=== PATIENT | female | born 1960 | race Two or more races ===

== ENCOUNTER 2018-05-03 06:18 | Inpatient (IN) | payer MEDICAID, OTHER ==
[2018-05-03] VITALS (7 sets, daily range): BP systolic 140–167; BP diastolic 67–86
[~2018-05-03] VITALS: Ht 175.3 cm; Wt 147.4 kg
[2018-05-03] MEDS ORDERED: MAGNESIUM 2 G PREMIX 50 ML IV STA (06:40)
[2018-05-03] MEDS ORDERED: METHYLPREDNISOLONE SOD SUCC 125 MG/2 ML VIAL IV STA (06:40)
[2018-05-03] MEDS ORDERED: IPRATROPIUM BROMIDE (0.02%) 0.5MG/2.5ML NEB HHN STA (06:40)
[2018-05-03] MEDS ORDERED: ALBUTEROL (0.083%) 2.5MG/3ML NEB HHN STA (06:40)
[2018-05-03] MEDS ORDERED: FUROSEMIDE 20MG/2ML VIAL IVP ONE (07:00)
[2018-05-03] MEDS ORDERED: LEVOFLOXACIN 750MG PREMIX 150 ML IV ONE (07:00)
[2018-05-03 07:23] LABS: HEMATOCRIT. 38.3 % (36.0-48.0); HEMOGLOBIN. 12.3 g/dL (12.0-16.0); MEAN CORPUSCULAR HEMOGLOBIN 25.2 pg (28.0-32.0); MEAN CORPUSCULAR VOLUME 78.3 fL (81.0-99.0); MEAN PLATELET VOLUME 8.7 fl (7.4-10.4); PLATELET 210 x1000/uL (130-400); RED BLOOD CELL COUNT 4.89 mill/uL (4.2-5.4); RED CELL DISTRIBUTION WIDTH 14.9 % (11.6-14.6)
[2018-05-03 07:30] LABS: CHLORIDE 101 mEq/L (98-107)
[2018-05-03 07:33] LABS: INR 1.1; PROTHROMBIN TIME 10.7 sec (9.1-11.1)
[2018-05-03 08:03] LABS: PLATELET ESTIMATE NORMAL
[2018-05-03 08:17] LABS: BG BASE EXCESS -5.2 mmol/L (-2.0-2.0); BG CARBOXYHEMOGLOBIN 0.3 % (0.5-1.5); BG DEOXYHEMOGLOBIN 0.7 % (0.0-5.0); BG FRACTION INSPIRED OXYGEN 35; BG METHEMOGLOBIN 0.5 % (0.0-1.5); BG OXYGEN SATURATION 99.3 % (92.0-98.5); BG OXYHEMOGLOBIN 98.5 % (94.0-97.0); BG PCO2 37.7 mmHg (35.0-45.0); BG PH 7.342 (7.350-7.450); BG PO2 217.4 mmHg (75.0-100.0); BG SAMPLE SITE RIGHT RADIAL; BG TOTAL HEMOGLOBIN 13.1 g/dL (12.0-18.0); BG VENT MODE MASK - BIPAP; BG VENT RATE 18 set
[2018-05-03 08:35] LABS: CLARITY URINE CLEAR (CLEAR); COLOR URINE YELLOW (YELLOW); KETONES URINE TRACE (NEGATIVE); LEUKOCYTE ESTERASE URINE TRACE (NEGATIVE); NITRITE URINE NEGATIVE (NEGATIVE); OCCULT BLOOD URINE NEGATIVE (NEGATIVE); PH URINE 5.5 (4.5-8.0); PROTEIN URINE NEGATIVE (NEGATIVE); SPECIFIC GRAVITY URINE 1.024 (1.005-1.030)
[2018-05-03] MEDS ORDERED: BENZONATATE 100MG CAPSULE PO PRN (09:00)
[2018-05-03] MEDS ORDERED: POTA10CA42 MT (11:07)
[2018-05-03] MEDS ORDERED: FLUO20CA33 MT (11:07)
[2018-05-03] MEDS ORDERED: [UNRECOGNIZED DRUG - OTHER] (11:07)
[2018-05-03] MEDS ORDERED: FURO20TA4 PO (11:07)
[2018-05-03] MEDS ORDERED: OMEP20TA2 PO (11:09)
[2018-05-03] MEDS ORDERED: ASPI-1158 PO (11:09)
[2018-05-03] MEDS ORDERED: IPRATROPIUM/ALBUTEROL 0.5-3(2.5)MG/3ML NEB HHN PRN (12:00)
[2018-05-03] MEDS: METHYLPREDNISOLONE SOD SUCC 40 MG/ML VIAL IV SCH ×2 (12:08→20:27)
[2018-05-03] MEDS: HYDROCODONE/ACETAMINOPHEN 5/325MG TABLET PO PRN (12:27)
[2018-05-03] MEDS: IPRATROPIUM/ALBUTEROL 0.5-3(2.5)MG/3ML NEB HHN SCH ×3 (12:35→21:03)
[2018-05-03] MEDS: AZITHROMYCIN 500 MG in DEXT 5% WATER 250 ML IV SCH (14:32)
[2018-05-03] MEDS ORDERED: INFLUENZA VIRUS VACCINE(AFLURIA) 0.5ML SYR IM ONE (15:45)
[2018-05-03] MEDS ORDERED: PNEUMOCOCCAL 23-VAL P-SAC VAC 0.5 ML IM ONE (15:45)
[2018-05-03] MEDS: ACETYLCYSTEINE 100MG/ML 10% VIAL 4ML INH SCH (16:59)
[2018-05-03] MEDS: MONTELUKAST SODIUM 10MG TABLET PO SCH (17:27)
[2018-05-03] MEDS: MORPHINE SULFATE 4 MG/ML CPJ (NOT FOR IM USE) IV PRN (20:28)
[2018-05-03] MEDS: AMLODIPINE 5MG TABLET PO SCH (20:29)
[2018-05-03] MEDS: GUAIFENESIN 600MG ER TABLET PO SCH (20:29)
[2018-05-04] VITALS (12 sets, daily range): BP systolic 138–163; BP diastolic 69–107
[2018-05-04] MEDS: IPRATROPIUM/ALBUTEROL 0.5-3(2.5)MG/3ML NEB HHN SCH ×6 (00:33→20:15)
[2018-05-04] MEDS: ACETYLCYSTEINE 100MG/ML 10% VIAL 4ML INH SCH ×3 (00:34→15:56)
[2018-05-04] MEDS: METHYLPREDNISOLONE SOD SUCC 40 MG/ML VIAL IV SCH ×3 (03:15→21:15)
[2018-05-04] MEDS: MORPHINE SULFATE 4 MG/ML CPJ (NOT FOR IM USE) IV PRN ×2 (04:13→18:02)
[2018-05-04] MEDS: CLONIDINE 0.1MG TABLET PO PRN (05:14)
[2018-05-04] MEDS: OMEPRAZOLE 20MG CAPSULE EXTENDED RELEASE PO SCH (06:25)
[2018-05-04 06:43] LABS: HEMATOCRIT. 35.4 % (36.0-48.0); HEMOGLOBIN. 11.6 g/dL (12.0-16.0); MEAN CORPUSCULAR HEMOGLOBIN 25.1 pg (28.0-32.0); MEAN CORPUSCULAR VOLUME 76.9 fL (81.0-99.0); MEAN PLATELET VOLUME 8.9 fl (7.4-10.4); PLATELET 198 x1000/uL (130-400); RED CELL DISTRIBUTION WIDTH 15.1 % (11.6-14.6)
[2018-05-04 06:46] LABS: CHLORIDE 100 mEq/L (98-107)
[2018-05-04] MEDS: ASPIRIN 81MG TABLET PO SCH (08:41)
[2018-05-04] MEDS: FLUOXETINE HCL 20MG CAPSULE PO SCH (08:43)
[2018-05-04] MEDS: GUAIFENESIN 600MG ER TABLET PO SCH ×2 (08:43→21:14)
[2018-05-04] MEDS: POTASSIUM CHLORIDE 20MEQ TABLET SR PO SCH (08:43)
[2018-05-04] MEDS: AMLODIPINE 5MG TABLET PO SCH ×2 (08:43→21:14)
[2018-05-04] MEDS: LEVOFLOXACIN 750MG PREMIX 150 ML IV SCH (08:44)
[2018-05-04] MEDS: FUROSEMIDE 20MG TABLET PO SCH (08:44)
[2018-05-04 09:04] LABS: PLATELET ESTIMATE NORMAL
[2018-05-04] MEDS ORDERED: LACTULOSE 20G/30ML UDC PO PRN (10:45)
[2018-05-04] MEDS: DOCUSATE SODIUM 250MG CAPSULE PO SCH (12:01)
[2018-05-04] MEDS ORDERED: SODIUM CHLORIDE 10% FOR INH 15ML VIAL NEB INH SCH (14:30)
[2018-05-04] MEDS: AZITHROMYCIN 500 MG in DEXT 5% WATER 250 ML IV SCH (15:49)
[2018-05-04] MEDS: MONTELUKAST SODIUM 10MG TABLET PO SCH (18:02)
[2018-05-05] VITALS (11 sets, daily range): BP systolic 139–169; BP diastolic 56–106
[2018-05-05] MEDS: IPRATROPIUM/ALBUTEROL 0.5-3(2.5)MG/3ML NEB HHN SCH ×5 (04:00→20:25)
[2018-05-05] MEDS: ACETYLCYSTEINE 100MG/ML 10% VIAL 4ML INH SCH ×2 (05:24→07:39)
[2018-05-05] MEDS: METHYLPREDNISOLONE SOD SUCC 40 MG/ML VIAL IV SCH ×2 (05:39→13:00)
[2018-05-05] MEDS: HYDROCODONE/ACETAMINOPHEN 5/325MG TABLET PO PRN ×3 (05:40→21:38)
[2018-05-05] MEDS: POTASSIUM CHLORIDE 20MEQ TABLET SR PO SCH (09:06)
[2018-05-05] MEDS: FLUOXETINE HCL 20MG CAPSULE PO SCH (09:06)
[2018-05-05] MEDS: GUAIFENESIN 600MG ER TABLET PO SCH ×2 (09:06→21:36)
[2018-05-05] MEDS: ASPIRIN 81MG TABLET PO SCH (09:06)
[2018-05-05] MEDS: FUROSEMIDE 20MG TABLET PO SCH (09:07)
[2018-05-05] MEDS: OMEPRAZOLE 20MG CAPSULE EXTENDED RELEASE PO SCH (09:07)
[2018-05-05] MEDS: AMLODIPINE 5MG TABLET PO SCH ×2 (09:07→21:36)
[2018-05-05] MEDS: DOCUSATE SODIUM 250MG CAPSULE PO SCH (09:07)
[2018-05-05] MEDS: LEVOFLOXACIN 750MG PREMIX 150 ML IV SCH (09:54)
[2018-05-05 12:10] LABS: *AMPHETAMINES SCREEN URINE NEGATIVE (NEGATIVE); *BARBITURATES SCREEN URINE NEGATIVE (NEGATIVE); *BENZODIAZEPINES SCREEN URINE NEGATIVE (NEGATIVE); *COCAINE SCREEN URINE NEGATIVE (NEGATIVE)
[2018-05-05 12:11] LABS: CANNABINOID URINE SCREEN NEGATIVE (NEGATIVE); METHADONE URINE SCREEN NEGATIVE (NEGATIVE); OPIATES URINE SCREEN PRESUMTIVE POSITIVE (NEGATIVE); PHENCYCLIDINE URINE SCREEN NEGATIVE (NEGATIVE)
[2018-05-05] MEDS: AZITHROMYCIN 500 MG in DEXT 5% WATER 250 ML IV SCH (13:00)
[2018-05-05] MEDS ORDERED: GUAIFENESIN/CODEINE 100-10MG/5ML UDC PO PRN (14:30)
[2018-05-05] MEDS ORDERED: RACEPINEPHRINE 2.25% 0.5ML NEB VIAL HHN PRN (14:30)
[2018-05-05] MEDS ORDERED: FLUCONAZOLE 150MG TABLET PO NR (17:00)
[2018-05-05] MEDS: MONTELUKAST SODIUM 10MG TABLET PO SCH (17:38)
[2018-05-05 20:22] LABS: HEMATOCRIT. 36.9 % (36.0-48.0); HEMOGLOBIN. 11.7 g/dL (12.0-16.0); MEAN CORPUSCULAR HEMOGLOBIN 24.8 pg (28.0-32.0); MEAN CORPUSCULAR VOLUME 78.5 fL (81.0-99.0); MEAN PLATELET VOLUME 8.8 fl (7.4-10.4); PLATELET 265 x1000/uL (130-400); RED CELL DISTRIBUTION WIDTH 15.5 % (11.6-14.6)
[2018-05-05] MEDS: FLUTICASONE PROPIONATE 50MCG/SPRAY BOTTLE BOTHNSTRLS SCH (21:37)
[2018-05-05 23:09] LABS: PLATELET ESTIMATE NORMAL
[2018-05-06] VITALS (7 sets, daily range): BP systolic 156–171; BP diastolic 56–99
[2018-05-06] MEDS: IPRATROPIUM/ALBUTEROL 0.5-3(2.5)MG/3ML NEB HHN SCH ×6 (00:30→21:18)
[2018-05-06 06:21] LABS: BASOPHILS % 0.2 % (0.0-2.0); HEMATOCRIT. 36.4 % (36.0-48.0); HEMOGLOBIN. 11.8 g/dL (12.0-16.0); LYMPHOCYTES % 12.5 % (20.0-50.0); MEAN CORPUSCULAR VOLUME 77.5 fL (81.0-99.0); MEAN PLATELET VOLUME 8.7 fl (7.4-10.4); MONOCYTES % 8.6 % (2.0-8.0); NEUTROPHILS % 78.7 % (40.0-76.0); PLATELET 293 x1000/uL (130-400); RED CELL DISTRIBUTION WIDTH 15.1 % (11.6-14.6)
[2018-05-06] MEDS: OMEPRAZOLE 20MG CAPSULE EXTENDED RELEASE PO SCH (06:44)
[2018-05-06] MEDS: LEVOFLOXACIN 750MG PREMIX 150 ML IV SCH (07:55)
[2018-05-06] MEDS: FLUOXETINE HCL 20MG CAPSULE PO SCH (08:08)
[2018-05-06] MEDS: ASPIRIN 81MG TABLET PO SCH (08:08)
[2018-05-06] MEDS: POTASSIUM CHLORIDE 20MEQ TABLET SR PO SCH (08:08)
[2018-05-06] MEDS: PREDNISONE 20MG TABLET PO SCH (08:08)
[2018-05-06] MEDS: DOCUSATE SODIUM 250MG CAPSULE PO SCH (08:08)
[2018-05-06] MEDS: FUROSEMIDE 20MG TABLET PO SCH (08:08)
[2018-05-06] MEDS: FLUTICASONE PROPIONATE 50MCG/SPRAY BOTTLE BOTHNSTRLS SCH ×2 (08:09→19:58)
[2018-05-06] MEDS: AMLODIPINE 5MG TABLET PO SCH ×2 (08:47→20:00)
[2018-05-06] MEDS: GUAIFENESIN 600MG ER TABLET PO SCH ×2 (09:00→19:59)
[2018-05-06] MEDS: CLONIDINE 0.1MG TABLET PO PRN (10:18)
[2018-05-06 10:49] LABS: CHLORIDE 98 mEq/L (98-107)
[2018-05-06] MEDS ORDERED: PHENOL/SODIUM PHENOLATE 1.4% SRPAY 177ML MM PRN (14:00)
[2018-05-06] MEDS: AZITHROMYCIN 500 MG in DEXT 5% WATER 250 ML IV SCH (14:12)
[2018-05-06] MEDS: MONTELUKAST SODIUM 10MG TABLET PO SCH (16:37)
[2018-05-06] MEDS: THROAT LOZENGES-BENZOCAINE/MENTH/CETYLPYRD CL LOZENGES MM PRN (16:46)
[2018-05-06] MEDS: HYDROCODONE/ACETAMINOPHEN 5/325MG TABLET PO PRN (19:59)
[2018-05-07] VITALS: BP 160/66
[2018-05-07] MEDS: IPRATROPIUM/ALBUTEROL 0.5-3(2.5)MG/3ML NEB HHN SCH ×4 (01:00→12:15)
[2018-05-07 02:00] VITALS: BP 175/102
[2018-05-07] MEDS: CLONIDINE 0.1MG TABLET PO PRN (02:26)
[2018-05-07] MEDS: HYDROCODONE/ACETAMINOPHEN 5/325MG TABLET PO PRN ×2 (02:32→12:15)
[2018-05-07 04:00] VITALS: BP 177/104
[2018-05-07 06:20] LABS: HEMATOCRIT. 35.1 % (36.0-48.0); HEMOGLOBIN. 11.3 g/dL (12.0-16.0); MEAN CORPUSCULAR HEMOGLOBIN 24.7 pg (28.0-32.0); MEAN CORPUSCULAR VOLUME 76.9 fL (81.0-99.0); MEAN PLATELET VOLUME 8.2 fl (7.4-10.4); PLATELET 266 x1000/uL (130-400); RED BLOOD CELL COUNT 4.56 mill/uL (4.2-5.4); RED CELL DISTRIBUTION WIDTH 14.8 % (11.6-14.6)
[2018-05-07 07:19] LABS: CHLORIDE 97 mEq/L (98-107)
[2018-05-07 08:00] VITALS: BP 136/66
[2018-05-07] MEDS: FLUTICASONE PROPIONATE 50MCG/SPRAY BOTTLE BOTHNSTRLS SCH (08:57)
[2018-05-07] MEDS: OMEPRAZOLE 20MG CAPSULE EXTENDED RELEASE PO SCH (08:57)
[2018-05-07] MEDS: PREDNISONE 20MG TABLET PO SCH (08:59)
[2018-05-07] MEDS: FLUOXETINE HCL 20MG CAPSULE PO SCH (08:59)
[2018-05-07] MEDS: AMLODIPINE 5MG TABLET PO SCH (08:59)
[2018-05-07] MEDS: POTASSIUM CHLORIDE 20MEQ TABLET SR PO SCH (08:59)
[2018-05-07] MEDS ORDERED: LEVOFLOXACIN 750MG PREMIX 150 ML IV SCH (09:00)
[2018-05-07] MEDS: DOCUSATE SODIUM 250MG CAPSULE PO SCH (09:00)
[2018-05-07] MEDS: GUAIFENESIN 600MG ER TABLET PO SCH (09:00)
[2018-05-07] MEDS: ASPIRIN 81MG TABLET PO SCH (09:00)
[2018-05-07] MEDS: FUROSEMIDE 20MG TABLET PO SCH (09:00)
[2018-05-07] MEDS: THROAT LOZENGES-BENZOCAINE/MENTH/CETYLPYRD CL LOZENGES MM PRN ×2 (10:21→14:23)
[2018-05-07 10:59] LABS: PLATELET ESTIMATE NORMAL
[2018-05-07 12:00] VITALS: BP 145/78
[2018-05-07 13:32] VITALS: BP 132/78
== END 2018-05-07 15:05 | disposition home or self-care (01) | DRG 720 ==
LOC: ER 06:18 → 5EST 07:39 → EDBEDREQ 07:44 → ENRESERV 09:17
PROVIDERS: ADMIT Internal Medicine; ATTEND Internal Medicine
PROC: 5A09357 Assistance with Respiratory Ventilation, Less than 24 Consecutive Hours, Continuous Positive Airway Pressure (ICD-10-PCS; principal; 2018-05-03)
DX: A41.9 Sepsis, unspecified organism (principal); J96.00 Acute respiratory failure, unspecified whether with hypoxia or hypercapnia; I50.43 Acute on chronic combined systolic (congestive) and diastolic (congestive) heart failure; I42.9 Cardiomyopathy, unspecified; J18.9 Pneumonia, unspecified organism; E66.01 Morbid (severe) obesity due to excess calories; I11.0 Hypertensive heart disease with heart failure; R04.2 Hemoptysis; E87.1 Hypo-osmolality and hyponatremia; T38.0X5A Adverse effect of glucocorticoids and synthetic analogues, initial encounter; J44.1 Chronic obstructive pulmonary disease with (acute) exacerbation; J44.0 Chronic obstructive pulmonary disease with (acute) lower respiratory infection; Z68.42 Body mass index [BMI] 45.0-49.9, adult; I25.2 Old myocardial infarction; Z87.891 Personal history of nicotine dependence; Z98.891 History of uterine scar from previous surgery; Z88.8 Allergy status to other drugs, medicaments and biological substances; Y92.89 Other specified places as the place of occurrence of the external cause
CPT/HCPCS: 36415; 36600; 71045; 71250; 78582; 80048; 80061; 80305; 82375; 82805; 83036; 83605; 83880; 84145; 84443; 84484; 85379; 86850; 86900; 87070; 87804; 93306; 94640; 94660; 96365; 96375; 97162; 99291; A9558; J0456; J1940; J1956; J2270; J2920; J2930; J3475; J7050; J7060; J7131; J7512; J7608; J7611; J7620

== ENCOUNTER 2018-11-27 11:58 | Inpatient (IN) | payer OTHER ==
[~2018-11-27] VITALS: Ht 176.5 cm; Wt 141.5 kg
[~2018-11-27 11:58] MED LIST: ASPI-1158 PO; FLUO20CA33 MT; FURO20TA4 PO; OMEP20TA2 PO; POTA10CA42 MT; [UNRECOGNIZED DRUG - OTHER]
[2018-11-27] MEDS ORDERED: ASPIRIN 325MG TABLET PO ONE (12:30)
[2018-11-27] MEDS ORDERED: NITROGLYCERIN OINT 1GM/INCH UDPKT TD ONE (12:30)
[2018-11-27 12:38] LABS: BASOPHILS % 0.9 % (0.0-2.0); EOSINOPHILS % 2.5 % (0.0-5.0); HEMATOCRIT. 37.6 % (36.0-48.0); HEMOGLOBIN. 12.1 g/dL (12.0-16.0); LYMPHOCYTES % 41.8 % (20.0-50.0); MEAN CORPUSCULAR HEMOGLOBIN 25.4 pg (28.0-32.0); MEAN CORPUSCULAR VOLUME 79.1 fL (81.0-99.0); MEAN PLATELET VOLUME 8.1 fl (7.4-10.4); NEUTROPHILS % 41.8 % (40.0-76.0); PLATELET 214 x1000/uL (130-400); RED BLOOD CELL COUNT 4.75 mill/uL (4.2-5.4); RED CELL DISTRIBUTION WIDTH 15.2 % (11.6-14.6)
[2018-11-27 12:41] LABS: CHLORIDE 103 mEq/L (98-107)
[2018-11-27 12:44] LABS: D-DIMER 0.39 mg/L FEU (<0.50); PROTHROMBIN TIME 10.6 sec (9.6-11.0)
[2018-11-27] MEDS ORDERED: ONDANSETRON HCL 4MG/2ML INJ IV STA (14:20)
[2018-11-27] MEDS ORDERED: MORPHINE SULFATE 4 MG/ML CPJ (NOT FOR IM USE) IV STA (14:20)
[2018-11-27] MEDS ORDERED: IOHEXOL-350 100 ML BOTTLE ONE (16:03)
[2018-11-27 18:37] VITALS: BP 114/57
[2018-11-27] MEDS ORDERED: DIPHENHYDRAMINE 50MG/ML VIAL IV PRN (19:00)
[2018-11-27] MEDS ORDERED: MAGNESIUM/ALUMINUM HYDROXIDE/SIMETHICONE 30ML UDC PO PRN (19:00)
[2018-11-27] MEDS ORDERED: LORAZEPAM 2MG/ML CPJ IV PRN (19:00)
[2018-11-27] MEDS ORDERED: HYDRALAZINE 20MG/ML VIAL IV PRN (19:00)
[2018-11-27] MEDS ORDERED: ACETAMINOPHEN 325MG TABLET PO PRN (19:00)
[2018-11-27] MEDS ORDERED: ONDANSETRON HCL 4MG/2ML INJ IV PRN (19:00)
[2018-11-27] MEDS ORDERED: GUAIFENESIN 200MG/10ML SUGAR FREE UDC PO PRN (19:00)
[2018-11-27] MEDS ORDERED: DOCUSATE SODIUM 100MG CAPSULE PO PRN (19:00)
[2018-11-27] MEDS ORDERED: HYDROMORPHONE HCL/PF 2MG/ML CPJ IV PRN (19:00)
[2018-11-27] MEDS ORDERED: CLONIDINE 0.1MG TABLET PO PRN (19:00)
[2018-11-27] MEDS ORDERED: IPRATROPIUM/ALBUTEROL 0.5-3(2.5)MG/3ML NEB INH PRN (19:00)
[2018-11-27 20:00] VITALS: BP 115/54
[2018-11-27] MEDS: HYDROCODONE/ACETAMINOPHEN 5/325MG TABLET PO PRN (20:04)
[2018-11-27] MEDS ORDERED: FUROSEMIDE 20MG/2ML VIAL IVP NR (20:28)
[2018-11-27 23:30] LABS: CREATINE KINASE 214 IU/L (26-192)
[2018-11-27 23:31] LABS: CREATINE KINASE MB FRACTION 2.1 ng/mL (0.5-3.6)
[2018-11-28] VITALS: BP 111/61
[2018-11-28] MEDS: HYDROCODONE/ACETAMINOPHEN 5/325MG TABLET PO PRN ×4 (00:28→20:25)
[2018-11-28] MEDS: ENOXAPARIN 40MG/0.4ML SYR SUBCUT SCH ×3 (00:29→20:25)
[2018-11-28] MEDS ORDERED: CYAN50003 MT (01:16)
[2018-11-28] MEDS ORDERED: TRAZ-212 MT (01:16)
[2018-11-28] MEDS ORDERED: MONT10TA21 MT (01:16)
[2018-11-28] MEDS ORDERED: FOLI1TAB3 MT (01:16)
[2018-11-28] MEDS ORDERED: FISH MT (01:16)
[2018-11-28] MEDS ORDERED: HYDR-4001 MT (01:16)
[2018-11-28] MEDS: IPRATROPIUM/ALBUTEROL 0.5-3(2.5)MG/3ML NEB HHN SCH ×4 (03:39→15:30)
[2018-11-28 04:00] VITALS: BP 118/63
[2018-11-28 07:08] LABS: BASOPHILS % 0.8 % (0.0-2.0); EOSINOPHILS % 3.8 % (0.0-5.0); HEMOGLOBIN. 11.3 g/dL (12.0-16.0); LYMPHOCYTES % 39.6 % (20.0-50.0); MEAN CORPUSCULAR HEMOGLOBIN 25.5 pg (28.0-32.0); MEAN CORPUSCULAR VOLUME 79.4 fL (81.0-99.0); MEAN PLATELET VOLUME 8.5 fl (7.4-10.4); MONOCYTES % 14.3 % (2.0-8.0); NEUTROPHILS % 41.5 % (40.0-76.0); PLATELET 188 x1000/uL (130-400); RED BLOOD CELL COUNT 4.41 mill/uL (4.2-5.4); RED CELL DISTRIBUTION WIDTH 15.1 % (11.6-14.6)
[2018-11-28 07:23] LABS: CHLORIDE 106 mEq/L (98-107)
[2018-11-28 07:43] LABS: LDL CHOLESTEROL 83 mg/dL (5-100)
[2018-11-28 07:45] LABS: CREATINE KINASE 190 IU/L (26-192); CREATINE KINASE MB FRACTION 1.6 ng/mL (0.5-3.6); T4 FREE 0.97 ng/dL (0.76-1.46)
[2018-11-28 07:46] LABS: HDL CHOLESTEROL 45 mg/dL (40-59)
[2018-11-28 08:00] VITALS: BP 116/47
[2018-11-28] MEDS: ASPIRIN 81MG EC TABLET PO SCH (08:47)
[2018-11-28] MEDS ORDERED: REGADENOSON 0.4 MG/5 ML IV NR (09:00)
[2018-11-28] MEDS ORDERED: REGADENOSON 0.4 MG/5 ML IV ONE (10:20)
[2018-11-28 11:47] LABS: *AMPHETAMINES SCREEN URINE NEGATIVE (NEGATIVE); *BARBITURATES SCREEN URINE NEGATIVE (NEGATIVE); *BENZODIAZEPINES SCREEN URINE NEGATIVE (NEGATIVE); CANNABINOID URINE SCREEN NEGATIVE (NEGATIVE)
[2018-11-28 11:51] LABS: METHADONE URINE SCREEN NEGATIVE (NEGATIVE); OPIATES URINE SCREEN PRESUMTIVE POSITIVE (NEGATIVE)
[2018-11-28 11:54] LABS: *COCAINE SCREEN URINE NEGATIVE (NEGATIVE)
[2018-11-28 11:55] LABS: PHENCYCLIDINE URINE SCREEN NEGATIVE (NEGATIVE)
[2018-11-28 12:00] VITALS: BP 118/54
[2018-11-28 16:00] VITALS: BP 117/78
[2018-11-28 16:56] LABS: CREATINE KINASE 199 IU/L (26-192)
[2018-11-28 20:00] VITALS: BP 151/74
[2018-11-28] MEDS: SODIUM CHLORIDE 0.9% INJ 3ML FLUSH IVF SCH (20:27)
[2018-11-28] MEDS: BUDESONIDE 0.5MG/2ML NEB HHN SCH (21:28)
[2018-11-29] VITALS (11 sets, daily range): BP systolic 119–149; BP diastolic 56–86
[2018-11-29 00:09] LABS: CREATINE KINASE 187 IU/L (26-192)
[2018-11-29 00:10] LABS: CREATINE KINASE MB FRACTION 1.7 ng/mL (0.5-3.6)
[2018-11-29] MEDS: IPRATROPIUM/ALBUTEROL 0.5-3(2.5)MG/3ML NEB HHN SCH ×3 (02:00→10:00)
[2018-11-29] MEDS: SODIUM CHLORIDE 0.9% INJ 3ML FLUSH IVF SCH ×2 (06:12→14:00)
[2018-11-29 07:05] LABS: CREATINE KINASE 177 IU/L (26-192)
[2018-11-29] MEDS ORDERED: IODIXANOL 320MG/ML 100 ML BOTTLE IV ONE (07:25)
[2018-11-29] MEDS ORDERED: MIDAZOLAM HCL 2 MG/2 ML VIAL ONE (07:25)
[2018-11-29] MEDS ORDERED: FENTANYL CITRATE/PF 50MCG/ML 2ML VIAL ONE (07:25)
[2018-11-29] MEDS ORDERED: LIDOCAINE HCL 1% 20ML VIAL (Pyxis) INJ ONE (07:27)
[2018-11-29] MEDS ORDERED: OMEPRAZOLE 20MG CAPSULE EXTENDED RELEASE PO SCH (07:40)
[2018-11-29] MEDS ORDERED: ATROPINE SULFATE 1MG/10ML SYR IV PRN (08:15)
[2018-11-29] MEDS ORDERED: ACETAMINOPHEN 325MG TABLET PO PRN (08:15)
[2018-11-29] MEDS: BUDESONIDE 0.5MG/2ML NEB HHN SCH (08:15)
[2018-11-29] MEDS: ASPIRIN 81MG EC TABLET PO SCH (09:34)
[2018-11-29] MEDS: HYDROCODONE/ACETAMINOPHEN 5/325MG TABLET PO PRN (13:06)
[2018-11-29] MEDS ORDERED: DOCUSATE SODIUM 250MG CAPSULE PO PRN (16:15)
== END 2018-11-29 18:36 | disposition home or self-care (01) | DRG 192 ==
LOC: ER 11:58 → EDBEDREQ 12:36 → ENRESERV 15:39 → 7WST 18:55 → 3WST 11-29 08:36
PROVIDERS: ADMIT Internal Medicine; ATTEND Internal Medicine
PROC: 4A023N7 Measurement of Cardiac Sampling and Pressure, Left Heart, Percutaneous Approach (ICD-10-PCS; principal; 2018-11-29)
PROC: B2111ZZ Fluoroscopy of Multiple Coronary Arteries using Low Osmolar Contrast (ICD-10-PCS; 2018-11-29)
DX: R07.89 Other chest pain (principal); J96.00 Acute respiratory failure, unspecified whether with hypoxia or hypercapnia; I42.9 Cardiomyopathy, unspecified; Z68.42 Body mass index [BMI] 45.0-49.9, adult; I11.0 Hypertensive heart disease with heart failure; I50.22 Chronic systolic (congestive) heart failure; I25.10 Atherosclerotic heart disease of native coronary artery without angina pectoris; J44.9 Chronic obstructive pulmonary disease, unspecified; E11.9 Type 2 diabetes mellitus without complications; E66.9 Obesity, unspecified; F32.9 Major depressive disorder, single episode, unspecified; K21.9 Gastro-esophageal reflux disease without esophagitis; I25.2 Old myocardial infarction; Z86.73 Personal history of transient ischemic attack (TIA), and cerebral infarction without residual deficits; Z87.891 Personal history of nicotine dependence; Z87.01 Personal history of pneumonia (recurrent); Z88.1 Allergy status to other antibiotic agents; Z98.891 History of uterine scar from previous surgery; Z79.84 Long term (current) use of oral hypoglycemic drugs; Z79.82 Long term (current) use of aspirin; Z79.899 Other long term (current) drug therapy
CPT/HCPCS: 36415; 71045; 71275; 73030; 78452; 80061; 80305; 82550; 82553; 83036; 83880; 84439; 84443; 84484; 85379; 93005; 93017; 93306; 93458; 93970; 96374; 99285; A9500; C1760; C1769; C1887; C1893; J1644; J1650; J1940; J2250; J2270; J2405; J2785; J3010; J3490; J7620; J7626; Q9967